=== PATIENT | male | born 1990 | race African-American/Black ===

== ENCOUNTER 2023-09-22 20:06 | Emergency (ER) | payer OTHER ==
[~2023-09-22] VITALS: Ht 180.3 cm; Wt 140.7 kg
[2023-09-22 23:14] VITALS: BP 130/83; PULSE 80; RESP 18; O2SAT 98
[2023-09-22] MEDS: IBUPROFEN 800 MG TAB PO ONE (23:24)
[2023-09-23] MEDS ORDERED: IBUP-1455 PO (02:25)
== END 2023-09-23 02:38 | disposition home or self-care (01) ==
LOC: ER 20:06
DX: M25.562 Pain in left knee (principal); R51.9 Headache, unspecified; R42 Dizziness and giddiness; Y04.2XXA Assault by strike against or bumped into by another person, initial encounter; Y93.89 Activity, other specified; Y92.69 Other specified industrial and construction area as the place of occurrence of the external cause; Y99.8 Other external cause status
CPT/HCPCS: 29505; 73700